=== PATIENT | male | born 1960 | race Caucasian/White ===

== ENCOUNTER 2018-11-13 11:09 | Day surgery (SDC) | payer BC ==
[~2018-11-13] VITALS: Ht 172.7 cm; Wt 91.1 kg
[2018-11-13 11:30] VITALS: BP 148/100
[2018-11-13] MEDS ORDERED: SILD20TA PO (12:46)
[2018-11-13] MEDS ORDERED: CALC625T31 PO (12:46)
[2018-11-13] MEDS ORDERED: OMEP20CA11 PO (12:46)
[2018-11-13] MEDS ORDERED: ALBU8.5H8 INH (12:46)
[2018-11-13] MEDS ORDERED: MONT10TA24 PO (12:46)
[2018-11-13 13:23] VITALS: BP 173/103
[2018-11-13] MEDS ORDERED: LIDOcaine 1%/PF 5ML 10 MG/ML VIAL SQ ONE (13:25)
[2018-11-13 14:02] VITALS: BP 147/104
== END 2018-11-13 14:10 | disposition home or self-care (01) ==
LOC: SSTAY O 11:09
PROVIDERS: ATTEND Radiology Vascular & Interventional Radiology
DX: M71.21 Synovial cyst of popliteal space [Baker], right knee (principal); R22.41 Localized swelling, mass and lump, right lower limb; M25.561 Pain in right knee; M19.90 Unspecified osteoarthritis, unspecified site; Z87.891 Personal history of nicotine dependence; Z79.899 Other long term (current) drug therapy; Z72.89 Other problems related to lifestyle
CPT/HCPCS: 10030; 76942

== ENCOUNTER 2019-01-09 06:09 | Inpatient (IN) | payer BC ==
[~2019-01-09] VITALS: Ht 170.2 cm; Wt 95.0 kg
[~2019-01-09 06:09] MED LIST: ALBU8.5H8 INH; CALC625T31 PO; MONT10TA24 PO; OMEP20CA11 PO; SILD20TA PO
[2019-01-09] MEDS ORDERED: normal saline 1000ML IV soln IV ONE (06:30)
[2019-01-09] MEDS ORDERED: ondansetron/PF 4mg/2ml inj IV ONE (06:30)
[2019-01-09] MEDS ORDERED: proCHLORperazine 10 MG/2 ml inj IV ONE (06:30)
[2019-01-09 07:04] LABS: BASOPHILS % (AUTO) 0.3 % (0-1); EOSINOPHILS % (AUTO) 0.4 % (0-6); LYMPHOCYTES % (AUTO) 11.9 % (21-51); MEAN PLATELET VOLUME 10.9 FL (7.4-10.4); MONOCYTES # (AUTO) 0.9 X10'3 (0-0.9); MONOCYTES % (AUTO) 10.6 % (2-12); NEUTROPHILS # (AUTO) 6.4 X10'3 (1.8-7.7); NEUTROPHILS % (AUTO) 76.8 % (42-75); PLATELET COUNT 131 X10'3 (140-440); WHITE BLOOD COUNT 8.4 X10'3 (4.5-11.0)
[2019-01-09 07:17] LABS: ALANINE AMINOTRANSFERASE 51 U/L (12-78); ALBUMIN 3.3 G/DL (3.4-5.0); ALBUMIN/GLOBULIN RATIO 0.9 (1.1-1.5); ALKALINE PHOSPHATASE 78 IU/L (46-116); ANION GAP 14 (8-16); ASPARTATE AMINO TRANSFERASE 31 U/L (10-37); BILIRUBIN,TOTAL 2.2 MG/DL (0.1-1.0); BLOOD UREA NITROGEN 20 MG/DL (7-18); BUN/CREATININE RATIO 16.8 (5.4-32.0); CALCIUM 8.2 MG/DL (8.5-10.1); CHLORIDE 94 MMOL/L (99-107); CREATININE 1.19 MG/DL (0.60-1.10); GLUCOSE 188 MG/DL (70-104); MAGNESIUM 2.2 MG/DL (1.5-2.4); SODIUM 136 MMOL/L (135-145); TOTAL CARBON DIOXIDE 27.7 MMOL/L (24-32); eGFR 63 ML/MIN
[2019-01-09 07:20] LABS: PARTIAL THROMBOPLASTIN TIME 27 SECONDS (22-32)
[2019-01-09 07:21] LABS: POTASSIUM 2.3 MMOL/L (3.5-5.1)
[2019-01-09] MEDS ORDERED: potassium Cl 20 mEq SR tablet PO STA (07:22)
--- NOTE | 2019-01-09 07:29 | NUR ---
LAB HAS DRAWN BLOOD CULTURES, PT GIVEN URINAL TO PROVIDE SAMPLE PER ORDERS, PLACED COMMODE WITH HAT AT BEDSIDE FOR PT TO PROVIDE STOOL SAMPLE.
[2019-01-09 07:41] LABS: RED BLOOD COUNT 5.27 X10'6 (4.70-6.10)
[2019-01-09 07:42] LABS: HEMATOCRIT 48.7 % (42.0-52.0); HEMOGLOBIN 17.1 g/dl (14.0-17.9); MEAN CORPUSCULAR HEMOGLOBIN 32.5 PG (27.0-31.0); MEAN CORPUSCULAR HGB CONC 35.1 g/dL (33.0-36.5); MEAN CORPUSCULAR VOLUME 92.4 FL (78-98); RED CELL DISTRIBUTION WIDTH 13.6 % (11.5-14.5)
[2019-01-09] MEDS: potassium Cl 10 mEq/100mL bag IV SCH ×2 (07:44→08:51)
--- NOTE | 2019-01-09 07:51 | NUR ---
Pt taken out to CT
[2019-01-09 07:53] LABS: CLARITY,URINE SLIGHTLY CLOUDY (Clear); COLOR,URINE AMBER (Yellow); GLUCOSE, URINE NEGATIVE (Neg); KETONES,URINE 40 mg/dl (Neg); LEUKOCYTE ESTERASE ,URINE NEGATIVE (Neg); NITRITES, URINE NEGATIVE (Neg); OCCULT BLOOD,URINE TRACE-INTACT (Neg); PROTEIN,URINE 100 mg/dl (Neg); UROBILINOGEN,URINE 0.2 E.U/dL (0.2-1.0)
[2019-01-09 08:01] LABS: UA COLLECTION TYPE URINAL
[2019-01-09 08:02] LABS: HYALINE CASTS 0-3 /LPF (NEGATIVE); SQUAMOUS EPITHELIAL CELL,UR FEW /LPF (FEW)
[2019-01-09 08:03] LABS: BACTERIA,URINE 1+ /HPF (Neg); MUCUS STRANDS MODERATE /LPF (Neg); RBC,URINE 0-2 /HPF (0-2)
[2019-01-09] MEDS ORDERED: normal saline 1000ml 1,000 ML IV SCH (08:28)
[2019-01-09] MEDS ORDERED: magnesium Cl slow-release 64mg tablet PO PRN (08:30)
[2019-01-09] MEDS ORDERED: potassium CL 10mEq/100ml bag 100 ML IV PRN ×2 (08:30)
[2019-01-09] MEDS ORDERED: ipratropium/albuterol 3ml nebule NEB PRN (08:30)
[2019-01-09] MEDS ORDERED: magnesium 4gm in 100ml NS 100 ML IV PRN (08:30)
[2019-01-09] MEDS: K and/or MAG REPLACEMENT MC SCH (08:30)
[2019-01-09] MEDS ORDERED: mag hydrox/Alum hydrox/simeth 30ml oral suspension PO PRN (08:30)
[2019-01-09] MEDS ORDERED: acetaminophen 325mg tablet PO PRN ×2 (08:30)
[2019-01-09] MEDS ORDERED: magnesium 2GM in 50ml NS 50 ML IV PRN (08:30)
[2019-01-09] MEDS ORDERED: ondansetron/PF 4mg/2ml inj IV PRN (08:30)
[2019-01-09] MEDS ORDERED: AMLO5TAB PO (08:48)
[2019-01-09] MEDS ORDERED: LORazepam 1 MG tablet PO PRN (09:15)
[2019-01-09] MEDS ORDERED: thiamine inj. 100 MG in normal saline 100ml IV soln 100 ML IV ONE (09:15)
[2019-01-09] MEDS ORDERED: haloperidol lactate 5mg/ml inj IM PRN (09:15)
[2019-01-09] MEDS ORDERED: LORazepam 2 mg/ml vial IV PRN (09:15)
[2019-01-09] MEDS ORDERED: haloperidol 5mg tablet PO PRN (09:15)
--- NOTE | 2019-01-09 09:20 | NUR ---
CALLED PHARMACY REGARDING [facility] IV MED, THEY WILL VERIFY AND MAKE IV MEDICATION AND NOTIFY ME OR BRING MED TO ED FOR ADMINISTRATION
[2019-01-09 09:29] LABS: LIPASE 551 U/L (73-393)
--- NOTE | 2019-01-09 09:40 | NUR ---
PT USED BEDSIDE COMMODE DARK BROWN/GREEN LIQUID STOOL SAMPLE SENT TO LAB PER ORDERS.
[2019-01-09 09:52] LABS: HEMOGLOBIN A1C 5.4 % (4.5-6.2)
--- NOTE | 2019-01-09 09:55 | NUR ---
GAVE PT 2 ORANGE JELLO, APPLE SAUCE, ICE, AND ICEWATER, PT SPOUSE TO GET PT SOME ARIELLE GASCA CLERK ASKED TO FAX CLEAR LIQUID DIET INFO TO DIETARY
[2019-01-09 11:50] VITALS: BP 135/74
--- NOTE | 2019-01-09 12:27 | NUR ---
PAGER ID: [phone] MESSAGE: Orlin Blandon [id number] critical K at 2.4. Also do you want any accuchecks? hasn't has a drink for 7 days and A1C 5.4. Call surgical. thank you.
[2019-01-09] MEDS ORDERED: Potassium Cl inj 20 MEQ in normal saline 1000ml 990 ML IV SCH (12:35)
[2019-01-09] MEDS: potassium Cl 20 mEq SR tablet PO PRN ×3 (13:01→21:38)
[2019-01-09] MEDS: potassium Cl 20mEq in NS 1,000 ML IV SCH ×2 (13:01→21:45)
[2019-01-09 14:43] LABS: C DIFF ANTIGEN NEGATIVE (NEGATIVE); C DIFF SPECIMEN=DIARRHEA? ACCEPTABLE; C DIFFICILE TOXINS A&B NEGATIVE (Neg)
[2019-01-09] MEDS ORDERED: non-formulary drug (Albuterol Sulfate (Proair Hfa) 2 PUFFS) INH SCH (17:55)
[2019-01-09] MEDS ORDERED: albuterol 2.5 MG/3 ML nebule NEB PRN (18:00)
--- NOTE | 2019-01-09 18:47 | NUR ---
Patient in room [facility]. I have received report from Norma PEARSON and had the opportunity to ask questions and assume patient care. Patient is sitting at side of the bed, requested anti-diarrheal. State will ask MD as soon as able. Will continue to monitor.
--- NOTE | 2019-01-09 18:51 | NUR ---
Problems reprioritized. Patient report given, questions answered & plan of care reviewed with GAMALIEL PEARSON.
[2019-01-09 19:00] VITALS: BP_SYST 136; BP_SYST 144; BP_SYST 148; BP_DIAS 70; BP_DIAS 74; BP_DIAS 76
[2019-01-09 20:00] VITALS: BP 144/74
[2019-01-09] MEDS ORDERED: non-formulary drug (Omeprazole 1 CAP) PO SCH (20:00)
[2019-01-09] MEDS ORDERED: non-formulary drug (Amlodipine Besylate 1 TABLET) PO SCH (21:00)
[2019-01-09] MEDS: amLODIPine 5mg tablet PO SCH (21:37)
[2019-01-09] MEDS: pantoprazole 40mg Tablet.DR PO SCH (21:37)
[2019-01-10] VITALS: BP 113/57
[2019-01-10] MEDS: potassium Cl 20 mEq SR tablet PO PRN ×5 (01:20→21:38)
[2019-01-10 04:51] LABS: BASOPHILS % (AUTO) 0.5 % (0-1); EOSINOPHILS # (AUTO) 0.1 X10'3 (0-0.9); EOSINOPHILS % (AUTO) 1.5 % (0-6); LYMPHOCYTES # (AUTO) 1.6 X10'3 (1.1-4.8); LYMPHOCYTES % (AUTO) 22.9 % (21-51); MONOCYTES # (AUTO) 0.8 X10'3 (0-0.9); MONOCYTES % (AUTO) 11.9 % (2-12); NEUTROPHILS # (AUTO) 4.4 X10'3 (1.8-7.7); NEUTROPHILS % (AUTO) 63.2 % (42-75); RED BLOOD COUNT 4.23 X10'6 (4.70-6.10); RED CELL DISTRIBUTION WIDTH 13.4 % (11.5-14.5)
[2019-01-10 05:15] LABS: ALANINE AMINOTRANSFERASE 35 U/L (12-78); ALBUMIN 2.6 G/DL (3.4-5.0); ALBUMIN/GLOBULIN RATIO 0.9 (1.1-1.5); ALKALINE PHOSPHATASE 56 IU/L (46-116); AMYLASE 109 U/L (25-115); ANION GAP 8 (8-16); ASPARTATE AMINO TRANSFERASE 23 U/L (10-37); BILIRUBIN,TOTAL 1.2 MG/DL (0.1-1.0); BLOOD UREA NITROGEN 9 MG/DL (7-18); BUN/CREATININE RATIO 12.7 (5.4-32.0); CALCIUM 7.2 MG/DL (8.5-10.1); CHLORIDE 105 MMOL/L (99-107); CREATININE 0.71 MG/DL (0.60-1.10); GLUCOSE 97 MG/DL (70-104); LIPASE 939 U/L (73-393); MAGNESIUM 2.1 MG/DL (1.5-2.4); PHOSPHORUS 1.6 MG/DL (2.3-4.5); POTASSIUM 3.1 MMOL/L (3.5-5.1); SODIUM 139 MMOL/L (135-145); TOTAL CARBON DIOXIDE 25.9 MMOL/L (24-32); TOTAL PROTEIN 5.4 G/DL (6.4-8.2); eGFR > 90 ML/MIN
--- NOTE | 2019-01-10 06:42 | NUR ---
Problems reprioritized. Patient report given, questions answered & plan of care reviewed with Wilda PEARSON. watching TV, denies needs at this time.
[2019-01-10 07:15] VITALS: BP 136/79
[2019-01-10 07:30] VITALS: BP_SYST 130; BP_SYST 136; BP_DIAS 79; BP_DIAS 81; BP_DIAS 83
[2019-01-10 07:31] LABS: HEMATOCRIT 37.8 % (42.0-52.0); HEMOGLOBIN 13.4 g/dl (14.0-17.9); MEAN CORPUSCULAR HEMOGLOBIN 32.2 PG (27.0-31.0); MEAN CORPUSCULAR HGB CONC 35.5 g/dL (33.0-36.5); MEAN CORPUSCULAR VOLUME 90.5 FL (78-98)
[2019-01-10 07:32] LABS: MEAN PLATELET VOLUME 9.9 FL (7.4-10.4); PLATELET COUNT 105 X10'3 (140-440)
[2019-01-10 07:55] LABS: PLATELET ESTIMATE DECREASED; TOTAL CELLS COUNTED 100
[2019-01-10] MEDS ORDERED: folic acid inj. 2 MG, thiamine inj. 100 MG in normal saline 100ml IV soln 100 ML IV SCH (08:00)
[2019-01-10] MEDS: K and/or MAG REPLACEMENT MC SCH (08:00)
[2019-01-10] MEDS ORDERED: MVI, adult No.4 with vit. K 10 ML in dextrose 5% water 500ml 500 ML IV SCH ×2 (08:00)
[2019-01-10] MEDS: pantoprazole 40mg Tablet.DR PO SCH ×2 (08:00→20:12)
[2019-01-10] MEDS ORDERED: CALCIUM POLYCARBOPHIL PO SCH (08:00)
[2019-01-10] MEDS ORDERED: FIBER PO SCH (08:00)
[2019-01-10] MEDS ORDERED: montelukast 10mg tablet PO SCH (08:00)
[2019-01-10] MEDS: thiamine 100mg tablet PO SCH (08:48)
[2019-01-10] MEDS: folic acid 1mg tablet PO SCH (08:48)
[2019-01-10] MEDS: multivitamins, therapeutics tablet PO SCH (08:49)
[2019-01-10] MEDS: enoxaparin 40mg/0.4ml syringe SQ SCH (08:50)
[2019-01-10] MEDS: potassium Cl 20mEq in NS 1,000 ML IV SCH ×2 (09:01→20:18)
--- NOTE | 2019-01-10 10:11 | NUR ---
SPOKE WITH MD. HE REQUESTED THAT I GIVEN 40MEQ OF PO POTASSIUM AT NEXT DOSE (1300). AND HE WILL REASSESS FOR DC AFTER.
[2019-01-10 11:06] VITALS: BP 130/77
[2019-01-10 18:00] VITALS: BP 133/80
--- NOTE | 2019-01-10 18:09 | NUR ---
Problems reprioritized. Patient report given, questions answered & plan of care reviewed with LILI Rodriguez.
--- NOTE | 2019-01-10 18:38 | NUR ---
Patient in room [facility] 341. I have received report from Wilda PEARSON and had the opportunity to ask questions and assume patient care.
[2019-01-10 19:00] VITALS: BP_SYST 133; BP_SYST 143; BP_SYST 145; BP_DIAS 78; BP_DIAS 80; BP_DIAS 81
[2019-01-10] MEDS: montelukast 10mg tablet PO SCH (20:11)
[2019-01-10] MEDS: diphenoxylate/atropine tablet (Lomotil) PO PRN (20:11)
[2019-01-10] MEDS: amLODIPine 5mg tablet PO SCH (20:12)
[2019-01-10] MEDS: temazepam 15mg capsule PO PRN (21:37)
[2019-01-11 00:22] VITALS: BP 118/71
[2019-01-11] MEDS: potassium Cl 20 mEq SR tablet PO PRN ×3 (02:09→21:31)
[2019-01-11] MEDS: diphenoxylate/atropine tablet (Lomotil) PO PRN (02:55)
[2019-01-11 05:14] LABS: ALANINE AMINOTRANSFERASE 40 U/L (12-78); ALBUMIN 2.8 G/DL (3.4-5.0); ALBUMIN/GLOBULIN RATIO 0.9 (1.1-1.5); ALKALINE PHOSPHATASE 61 IU/L (46-116); AMYLASE 88 U/L (25-115); ANION GAP 8 (8-16); ASPARTATE AMINO TRANSFERASE 26 U/L (10-37); BLOOD UREA NITROGEN 5 MG/DL (7-18); BUN/CREATININE RATIO 6.3 (5.4-32.0); CALCIUM 7.5 MG/DL (8.5-10.1); CHLORIDE 105 MMOL/L (99-107); CREATININE 0.79 MG/DL (0.60-1.10); GLUCOSE 84 MG/DL (70-104); LIPASE 653 U/L (73-393); MAGNESIUM 1.9 MG/DL (1.5-2.4); PHOSPHORUS 2.1 MG/DL (2.3-4.5); POTASSIUM 3.4 MMOL/L (3.5-5.1); SODIUM 139 MMOL/L (135-145); TOTAL CARBON DIOXIDE 26.2 MMOL/L (24-32); TOTAL PROTEIN 5.8 G/DL (6.4-8.2); eGFR > 90 ML/MIN
[2019-01-11] MEDS: potassium Cl 20mEq in NS 1,000 ML IV SCH ×2 (05:16→15:05)
[2019-01-11 05:30] LABS: BASOPHILS % (AUTO) 0.4 % (0-1); EOSINOPHILS # (AUTO) 0.1 X10'3 (0-0.9); EOSINOPHILS % (AUTO) 1.9 % (0-6); LYMPHOCYTES # (AUTO) 1.6 X10'3 (1.1-4.8); LYMPHOCYTES % (AUTO) 21.4 % (21-51); MEAN PLATELET VOLUME 9.6 FL (7.4-10.4); MONOCYTES # (AUTO) 0.6 X10'3 (0-0.9); MONOCYTES % (AUTO) 8.2 % (2-12); NEUTROPHILS # (AUTO) 4.9 X10'3 (1.8-7.7); NEUTROPHILS % (AUTO) 68.1 % (42-75); PLATELET COUNT 127 X10'3 (140-440); WHITE BLOOD COUNT 7.3 X10'3 (4.5-11.0)
[2019-01-11 05:49] LABS: HEMATOCRIT 40.2 % (42.0-52.0); HEMOGLOBIN 14.3 g/dl (14.0-17.9); MEAN CORPUSCULAR HEMOGLOBIN 32.4 PG (27.0-31.0); MEAN CORPUSCULAR HGB CONC 35.7 g/dL (33.0-36.5); MEAN CORPUSCULAR VOLUME 90.9 FL (78-98); RED BLOOD COUNT 4.42 X10'6 (4.70-6.10); RED CELL DISTRIBUTION WIDTH 13.4 % (11.5-14.5)
--- NOTE | 2019-01-11 06:16 | NUR ---
Problems reprioritized. Patient report given, questions answered & plan of care reviewed with Sruthi PEARSON.
[2019-01-11 08:00] VITALS: BP 145/87
[2019-01-11] MEDS: folic acid 1mg tablet PO SCH (08:45)
[2019-01-11] MEDS: multivitamins, therapeutics tablet PO SCH (08:46)
[2019-01-11] MEDS: thiamine 100mg tablet PO SCH (08:47)
[2019-01-11] MEDS: enoxaparin 40mg/0.4ml syringe SQ SCH (08:47)
[2019-01-11] MEDS: K and/or MAG REPLACEMENT MC SCH (08:47)
[2019-01-11 11:00] VITALS: BP 139/78
[2019-01-11] MEDS ORDERED: mesalamine 400 mg capsule.DR PO SCH (12:00)
[2019-01-11] MEDS: levoFLOXACIN-Levaquin 500mg/D5 100 ML IV SCH (16:46)
--- NOTE | 2019-01-11 18:39 | NUR ---
Patient in room [facility]. I have received report from Sruthi PEARSON and had the opportunity to ask questions and assume patient care.
[2019-01-11 19:00] VITALS: BP_SYST 141; BP_SYST 142; BP_SYST 156; BP_DIAS 85; BP_DIAS 87; BP_DIAS 92
[2019-01-11] MEDS: montelukast 10mg tablet PO SCH (21:30)
[2019-01-11] MEDS: temazepam 15mg capsule PO PRN (21:30)
[2019-01-11] MEDS: amLODIPine 5mg tablet PO SCH (21:30)
[2019-01-12] MEDS: potassium Cl 20mEq in NS 1,000 ML IV SCH ×2 (00:44→10:50)
[2019-01-12 00:53] VITALS: BP 126/68
--- NOTE | 2019-01-12 06:15 | NUR ---
Patient in room [facility]. I have received report from LILI Rodriguez and had the opportunity to ask questions and assume patient care.
[2019-01-12 06:30] VITALS: BP 137/72
--- NOTE | 2019-01-12 06:36 | NUR ---
Problems reprioritized. Patient report given, questions answered & plan of care reviewed with Isabelle RN.
[2019-01-12 06:41] LABS: MAGNESIUM 1.7 MG/DL (1.5-2.4); PHOSPHORUS 2.4 MG/DL (2.3-4.5)
[2019-01-12] MEDS: K and/or MAG REPLACEMENT MC SCH (06:52)
[2019-01-12] MEDS ORDERED: pantoprazole 40mg Tablet.DR PO SCH (08:00)
[2019-01-12] MEDS: levoFLOXACIN-Levaquin 500mg/D5 100 ML IV SCH (08:17)
[2019-01-12] MEDS: folic acid 1mg tablet PO SCH (08:17)
[2019-01-12] MEDS: multivitamins, therapeutics tablet PO SCH (08:18)
[2019-01-12] MEDS: enoxaparin 40mg/0.4ml syringe SQ SCH (08:18)
[2019-01-12] MEDS: thiamine 100mg tablet PO SCH (08:18)
[2019-01-12 08:19] LABS: POTASSIUM 3.7 MMOL/L (3.5-5.1)
[2019-01-12] MEDS ORDERED: POTA20TA19 PO (10:27)
[2019-01-12] MEDS ORDERED: LEVO500T89 PO (10:27)
--- NOTE | 2019-01-12 12:10 | NUR ---
DC inst provided to pt. IV DC'd, tip intact. All belongings sent w/pt. RN ambulated w/pt to front lobby.
== END 2019-01-12 12:10 | disposition home or self-care (01) | DRG 371 ==
LOC: ER 06:10 → OBSVTOIN 11:56 → SUR 3N 11:56
PROVIDERS: ADMIT Family Medicine; ATTEND Family Medicine
DX: A02.0 Salmonella enteritis (principal); N17.0 Acute kidney failure with tubular necrosis; E78.00 Pure hypercholesterolemia, unspecified; E86.0 Dehydration; E87.6 Hypokalemia; I10 Essential (primary) hypertension; J45.909 Unspecified asthma, uncomplicated; E78.5 Hyperlipidemia, unspecified; R73.9 Hyperglycemia, unspecified; Z79.899 Other long term (current) drug therapy; Z80.0 Family history of malignant neoplasm of digestive organs; Z82.49 Family history of ischemic heart disease and other diseases of the circulatory system; Z82.0 Family history of epilepsy and other diseases of the nervous system; Z81.1 Family history of alcohol abuse and dependence; Z90.49 Acquired absence of other specified parts of digestive tract; Z72.89 Other problems related to lifestyle
CPT/HCPCS: 36415; 71045; 74176; 80053; 81001; 82150; 82948; 83036; 83605; 83690; 83735; 84100; 84132; 84145; 85025; 85610; 85730; 87040; 87045; 87046; 87077; 87081; 87088; 87186; 87324; 87449; 89055; 93005; 94760; 96365; 96375; 99285; G0378; J0780; J1650; J1956; J2405; J3411; J3480; J3490; J7030; J7060